=== PATIENT | female | born 1970 | race Asian ===

== ENCOUNTER 2021-03-25 13:08 | Emergency (ER) | payer MEDICAID, OTHER ==
[~2021-03-25] VITALS: Ht 137.2 cm; Wt 54.5 kg
[2021-03-25 13:54] VITALS: BP 137/95
[2021-03-25] MEDS ORDERED: orphenadrine citrate 60mg/2ml inj. IM ONE (15:45)
[2021-03-25] MEDS ORDERED: ketorolac tromethamine 15mg/ml inj. IM ONE (15:45)
[2021-03-25] MEDS ORDERED: IBUP-1985 PO (16:09)
[2021-03-25] MEDS ORDERED: METH-797 PO (16:09)
== END 2021-03-25 16:33 | disposition home or self-care (01) ==
LOC: ER 13:09
DX: S16.1XXA Strain of muscle, fascia and tendon at neck level, initial encounter (principal); R51.9 Headache, unspecified; M54.50 Low back pain, unspecified; M54.2 Cervicalgia; R07.89 Other chest pain; Z79.899 Other long term (current) drug therapy; V89.2XXA Person injured in unspecified motor-vehicle accident, traffic, initial encounter; Y93.89 Activity, other specified; Y92.89 Other specified places as the place of occurrence of the external cause; Y99.8 Other external cause status
CPT/HCPCS: 96372; 99284; J1885; J2360